=== PATIENT | male | born 1955 | race Caucasian/White ===

== ENCOUNTER 2019-04-10 07:46 | Day surgery (SDC) | payer MEDICAID ==
[2019-04-10] MEDS ORDERED: fentaNYL 100 MCG/2 ML SDV ONE (07:50)
[2019-04-10] MEDS ORDERED: Midazolam 1 MG/ML 2 ML SDV ONE (07:51)
[2019-04-10] MEDS ORDERED: Propofol 200 MG/20 ML SDV ONE ×2 (07:52→08:57)
[2019-04-10] MEDS ORDERED: Lactated Ringers 1,000 ML IV SCH (08:15)
--- NOTE | 2019-04-11 08:29 | OR ---
DATE OF PROCEDURE: 04/10/2019 SURGEON: Caleb Heath MD PREOPERATIVE DIAGNOSIS: Strong family history of colon cancer, mother had colon cancer. Personal history of polyps. POSTOPERATIVE DIAGNOSES: Two hepatic flexure polyps next to each other, sent as one specimen to the laboratory. Strong family history of colon cancer, mother had colon cancer. Personal history of polyps. Diverticulosis. PROCEDURE: Colonoscopy to the cecum with biopsy resection of 2 small hepatic flexure polyps. SURGEON: Caleb Heath MD. ANESTHESIA: IV anesthesia with monitored anesthesia care. INDICATION: This 63-year-old white male is referred for a colonoscopy because of a strong family history of colon cancer in his mother and a personal history of polyps. He says his last colonoscopic exam was done 3 years ago, it was done in [place], [place]. He is getting these every 3 years. I counseled him for the procedure, including risks and alternatives, and he gave his informed consent to proceed. DESCRIPTION OF PROCEDURE: The patient was placed in the left lateral decubitus position. IV anesthesia was administered by the Anesthesia Service. Time-out was held. A rectal exam was performed, which was unremarkable. The flexible video Olympus colonoscope was introduced through his anus, up his rectum, and out his colon all the way to the cecum. En route to the cecum, we saw a few scattered left-sided diverticula. There was no bleeding or inflammation associated with any of them. At the hepatic flexure, we saw two polyps adjacent to each other. These were removed with the biopsy forceps and sent to the laboratory as one specimen. Once the cecum was reached, the scope was slowly withdrawn examining the mucosa throughout. No additional mucosal abnormalities were noted. The scope was retroflexed in the rectum with the distal rectum appearing unremarkable. The scope was straightened and removed. He tolerated the procedure well. Caleb Heath MD /[id number] [place]
== END 2019-04-10 10:31 | disposition home or self-care (01) ==
LOC: JP.SDS 07:46
PROVIDERS: ATTEND Surgery
DX: Z12.11 Encounter for screening for malignant neoplasm of colon (principal); D12.3 Benign neoplasm of transverse colon; K57.30 Diverticulosis of large intestine without perforation or abscess without bleeding; I10 Essential (primary) hypertension; E66.9 Obesity, unspecified; Z91.013 Allergy to seafood; Z86.010 Personal history of colon polyps; Z80.0 Family history of malignant neoplasm of digestive organs; Z68.33 Body mass index [BMI] 33.0-33.9, adult
CPT/HCPCS: 45380; J2250; J2704; J3010; J7120; 88305